=== PATIENT | female | born 1940 ===

== ENCOUNTER 2017-10-18 10:34 | Outpatient (CLI) | payer OTHER | END 2017-10-18 11:11 | disposition home or self-care (01) | LOC: SONOGRAMA 10:34 | DX: M75.102 Unspecified rotator cuff tear or rupture of left shoulder, not specified as traumatic (principal) ==

== ENCOUNTER 2017-10-18 10:53 | Outpatient (CLI) | payer OTHER | END 2017-10-18 11:12 | disposition home or self-care (01) | LOC: RAD 10:53 | DX: M17.12 Unilateral primary osteoarthritis, left knee (principal); M19.012 Primary osteoarthritis, left shoulder ==

== ENCOUNTER 2019-05-27 12:04 | Emergency (ER) | payer OTHER ==
[~2019-05-27] VITALS: Ht 152.4 cm; Wt 72.6 kg
[2019-05-27] MEDS ORDERED: ASPIR 8181 MG (12:38)
[2019-05-27] MEDS ORDERED: LOSARTAN-HCTZ1 EACH (12:39)
[2019-05-27] MEDS ORDERED: JANUVIA50 MG (12:39)
== END 2019-05-27 16:37 | disposition home or self-care (01) ==
LOC: ER 12:04
DX: M77.11 Lateral epicondylitis, right elbow (principal)

== ENCOUNTER 2020-06-01 11:22 | Emergency (ER) | payer OTHER ==
[~2020-06-01] VITALS: Ht 167.6 cm; Wt 77.1 kg
[~2020-06-01 11:22] MED LIST: ASPIR 8181 MG; JANUVIA50 MG; LOSARTAN-HCTZ1 EACH
== END 2020-06-01 14:35 | disposition home or self-care (01) ==
LOC: ER 11:22
DX: S42.224A 2-part nondisplaced fracture of surgical neck of right humerus, initial encounter for closed fracture (principal); W18.09XA Striking against other object with subsequent fall, initial encounter; Y93.89 Activity, other specified; Y92.018 Other place in single-family (private) house as the place of occurrence of the external cause; Y99.8 Other external cause status